=== PATIENT | female | born 1950 | race Caucasian/White ===

== ENCOUNTER 2017-12-29 09:14 | Day surgery (SDC) | payer BC ==
[2017-12-28 12:48] VITALS: BMI 26.2
[2017-12-29 10:28] LABS: Hemoglobin 15.4 g/dL (12.0-16.0)
[2017-12-29 10:44] LABS: Anion Gap 11 mmol/L (10-20); BUN (Urea Nitrogen) 11 mg/dL (9.8-20.1); Calc. Creatinine Clearance 83 mL/min (70-130); Calcium 9.7 mg/dL (7.8-10.44); Carbon Dioxide 27 mmol/L (23-31); Chloride 106 mmol/L (98-107); Estimated GFR-MDRD 81; Glucose 109 mg/dL (80-115); Potassium 4.1 mmol/L (3.5-5.1); Sodium 140 mmol/L (136-145)
[2017-12-29] MEDS ORDERED: Fentanyl 100 MCG/2 ML VIAL ONE ×3 (12:13→13:56)
[2017-12-29] MEDS ORDERED: Lidocaine 1% w/Epinephrine 1:100K 30 ML VIAL ONE (12:22)
[2017-12-29] MEDS ORDERED: traMADol HCl 50 MG TAB ONE (15:09)
[2017-12-29] MEDS ORDERED: Succinylcholine Chloride 20 MG/ML 10 ml SYRINGE FS ONE (15:29)
[2017-12-29] MEDS ORDERED: Ondansetron HCl/PF 4 MG/2 ML Vial ONE (15:29)
[2017-12-29] MEDS ORDERED: PROPOFOL 200 MG/20 ML VIAL ONE (15:29)
[2017-12-29] MEDS ORDERED: PHENYLEPHRINE-NS 100 MCG/ML 10 ML SYRINGE ONE (15:29)
[2017-12-29] MEDS ORDERED: Lidocaine 1% PF 5 ML VIAL ONE (15:29)
[2017-12-29] MEDS ORDERED: Dexamethasone 20 MG/5 ML VIAL ONE (15:29)
[2017-12-29] MEDS ORDERED: ePHEDrine/0.9% NaCl/PF SYRINGE 50 mg/10 ml ONE (15:29)
--- NOTE | 2017-12-30 17:40 | OP ---
DATE OF PROCEDURE: 12/29/2017 SURGEON: Dr. Luis Deleon PREOPERATIVE DIAGNOSES: Right parotid mass. POSTOPERATIVE DIAGNOSES: Right parotid mass. PROCEDURE PERFORMED: Right superficial parotidectomy with facial nerve dissection using facial nerve monitor. PROCEDURE IN DETAIL: After consent was obtained, the patient was identified, brought to the operatin g room table where she was placed in supine position and positioned for surgery. After she was intub ated she was positioned for surgery and the area was prepped and draped. The line of incision was de lineated with a marking pen and extended preauricularly and then 2 fingerbreadths below the angle of the jaw. This incision was made with a 15 blade and carried down through the skin and subcutaneous t issues and a facial flap was elevated along the SMAS layer. The greater auricular nerve was transect ed to facilitate the dissection. We then dissected along the anterior aspect of the ear down to the external cartilaginous canal and anterior to the sternocleidomastoid. This dissection had been in a broad front with bleeding points identified and cauterized or suture ligated as they were encountered . Ultimately, the posterior belly of digastric was identified and the facial nerve was identified an d the root of the facial nerve was identified between the superior aspect of the digastric muscle and the pointer cartilage. This was dissected down along its branches and the superior and inferior bra nch from the PES was identified. We were then able because the nature of the mass was so posterior, we were able to then dissect the mass while observing from the integrity of the nerve. The specimen was sent for permanent histologic evaluation and attention was turned to wound, obtaining hemostasis and wound closure. The wound was closed in layers with 4-0 Monocryl to reapproximate this mass and p latysma and interrupted Monocryl for the dermis. The skin was then closed with running 6-0 Prolene s uture. Steri-Strips were applied and a sterile dressing was placed. The patient was awakened, extub ated, and taken to the recovery room where she remained in stable condition prior to discharge home.
== END 2017-12-29 16:10 | disposition home or self-care (01) ==
LOC: SDC 09:14
PROVIDERS: ATTEND Specialist
PROC: 0CB80ZZ Excision of Right Parotid Gland, Open Approach (ICD-10-PCS; principal; 2017-12-29)
DX: D11.0 Benign neoplasm of parotid gland (principal); J44.9 Chronic obstructive pulmonary disease, unspecified; K21.9 Gastro-esophageal reflux disease without esophagitis; J34.2 Deviated nasal septum; G44.209 Tension-type headache, unspecified, not intractable; Z79.899 Other long term (current) drug therapy; Z88.0 Allergy status to penicillin; Z85.038 Personal history of other malignant neoplasm of large intestine; Z85.51 Personal history of malignant neoplasm of bladder; Z88.8 Allergy status to other drugs, medicaments and biological substances
CPT/HCPCS: 36415; 80048; 85014; 85018; 88307; 93005; 93010; 96374; J1100; J2001; J2405; J2704; J3010

== ENCOUNTER 2020-01-01 19:33 | Emergency (ER) | payer BC ==
[~2020-01-01 19:33] MED LIST: Iopamidol-370 76% 500 ML 1 ML ONE
[2020-01-01] MEDS ORDERED: Promethazine HCl 25 MG/ML VIAL ONE (20:11)
[2020-01-01 20:16] LABS: #Basophils 0.1 thou/uL (0.0-0.2); #Eosinphils 0.2 thou/uL (0.0-0.7); #Lymphocytes 2.8 thou/uL (1.20-3.40); #Monocytes 0.6 thou/uL (0.11-0.59); %Eosinophils 2.3 % (0.0-10.0); %Lymphocytes 36.1 % (21.0-51.0); %Monocytes 8.3 % (0.0-10.0); %Neutrophils 52.2 % (42.0-75.0); Hemoglobin 15.6 g/dL (12.0-16.0); Mean Corpuscular HGB CONC 33.4 g/dL (32.0-36.0); Mean Corpuscular Hemoglobin 31.4 pg (27.0-31.0); Mean Corpuscular Volume 93.9 fL (78.0-98.0); Mean Platelet Volume 6.1 fL (7.4-10.4); Platelet Count 314 thou/uL (130-400); RBC Distribution Width 12.8 % (11.5-14.5); Red Blood Cell (RBC) Count 4.99 mill/uL (4.20-5.40); White Blood Cell (WBC) Count 7.6 thou/uL (4.8-10.8)
[2020-01-01 20:37] LABS: Bacteria/HPF None Seen HPF (None Seen); Bilirubin Negative (Negative); Blood, Urine 1+ (Negative); Clarity Clear (Clear); Glucose, Urine (Dipstick) Normal (Negative); Ketone, Urine Negative (Negative); Leukocyte Negative Leu/uL (Negative); Nitrite Negative (Negative); Protein, Urine (Dipstick) Negative (Neg-Trace); Specific Gravity, Urine 1.007 (1.002-1.036); Squamous Epithelial 0-3 HPF (0-3); Urobilinogen Normal mg/dL (Less than 2); WBC/HPF 0-3 HPF (0-3)
[2020-01-01 20:37] LABS: ALT (SGPT) Less than 7 U/L (8-55); AST (SGOT) 14 U/L (5-34); Albumin 4.1 g/dL (3.4-4.8); Alkaline Phosphatase 109 U/L (40-110); Anion Gap 11 mmol/L (10-20); BUN (Urea Nitrogen) 7 mg/dL (9.8-20.1); Bilirubin, Total 0.3 mg/dL (0.2-1.2); Calc. Creatinine Clearance 0 mL/min (70-130); Calcium 9.4 mg/dL (7.8-10.44); Carbon Dioxide 29 mmol/L (23-31); Chloride 105 mmol/L (98-107); Estimated GFR-MDRD 88; Globulin 3.1 g/dL (2.4-3.5); Glucose 101 mg/dL (80-115); Lipase 19 U/L (8-78); Potassium 4.5 mmol/L (3.5-5.1); Protein, Total 7.2 g/dL (6.0-8.3); Sodium 140 mmol/L (136-145)
--- NOTE | 2020-01-01 21:19 | CT ---
CT ABDOMEN AND PELVIS PERFORMED WITH CONTRAST ENHANCEMENT: 01/01/20 HISTORY: Bladder cancer. Recurrent diverticulitis presenting with three days of worsening abdominal pain. No f ever or chills. COMPARISON: An 11/12/15 study. The lung bases are clear. A moderate hiatal hernia is noted. Innumerable hypodensities within the liver similar to the prior exam most compatible with cysts. The spleen, pancreas, and gallbladder region all appears unremarkable. Hyperplastic appearance which is probably related to an adenoma of the left adrenal gland is stable. The right adrenal is normal. The right kidney is normal in size and appearance. A large exophytic pa rapelvic cyst in the lower pole region of the left kidney is again noted. This measures approximately 7.1 cm. 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 It measures 4.3 cm in length. In reviewing the previous CT study which had some delayed images, this corresponds to the area of the course of the ureter and is suspicious for a ureteral mass. There is a retroaortic left renal vein incidentally noted. There is no significant pe riaortic or mesenteric adenopathy. CT OF PELVIS PERFORMED WITH CONTRAST ENHANCEMENT: Surgical clips along the left of the bladder which is incompletely distended. Diverticulosis of the c olon mainly of the sigmoid region is seen without inflammatory change. A fat containing periumbilical hernia is present. The appendix is normal in size. Review of osseous structures show no lytic or blastic bony change. IMPRESSION: 1. Soft tissue mass which is along the posterior edge of a large exophytic parapelvic left renal cyst. This density appears to correspond in location to the position of the ureter when viewed on a previous CT examination. The density of this would suggest that this presents a mass and an entity s uch as transitional cell carcinoma would have to be strongly considered. Urology consult is recommend ed. There is hydronephrosis of the left kidney associated with these changes which is actually simila r to the previous exam. 2. Stable left adrenal adenoma. 3. Hepatic cyst. 4. Diverticulosis. 5. Postop change of surgical clips along the left side of the bladder. 6. Hiatal hernia. POS: STEVE
== END 2020-01-01 22:50 | disposition home or self-care (01) ==
LOC: ERS 19:33
DX: N28.89 Other specified disorders of kidney and ureter (principal); Z85.51 Personal history of malignant neoplasm of bladder
CPT/HCPCS: 74177; 80053; 81003; 81015; 83690; 85025; 96365; 96366; J2550; Q9967

== ENCOUNTER 2023-01-01 23:00 | Observation (INO) | payer BC ==
[2023-01-02 00:54] VITALS: BMI 28.9
[2023-01-02] MEDS ORDERED: Nitroglycerin 0.4 MG TAB (25 Tab Bottle) SL PRN (01:54)
[2023-01-02] MEDS ORDERED: Pantoprazole 40 MG VIAL IVP SCH (01:58)
[2023-01-02] MEDS ORDERED: Acetaminophen 325 MG TAB PO PRN (01:59)
[2023-01-02] MEDS ORDERED: Ondansetron ODT 4 MG TAB PO PRN (01:59)
[2023-01-02] MEDS ORDERED: Ondansetron PF 4 MG/2 ML Vial IVP PRN (01:59)
[2023-01-02] MEDS ORDERED: Acetaminophen 650 MG Suppository PR PRN (01:59)
[2023-01-02 02:25] LABS: #Basophils 0.1 thou/uL (0.0-0.2); #Eosinphils 0.1 thou/uL (0.0-0.7); #Monocytes 0.6 thou/uL (0.11-0.59); #Neutrophils 4.4 thou/uL (1.40-6.50); %Basophils 0.7 % (0.0-1.0); %Eosinophils 1.1 % (0.0-10.0); %Lymphocytes 35.9 % (21.0-51.0); %Monocytes 7.8 % (0.0-10.0); %Neutrophils 54.3 % (42.0-75.0); Hematocrit 39.9 % (36.0-47.0); Mean Corpuscular HGB CONC 32.6 g/dL (32.0-36.0); Mean Corpuscular Hemoglobin 29.7 pg (27.0-31.0); Mean Corpuscular Volume 91.1 fl (78.0-98.0); Mean Platelet Volume 8.5 fL (7.4-10.4); Platelet Count 357 10x3/uL (130-400); RBC Distribution Width 14.1 % (11.5-14.5); Red Blood Cell (RBC) Count 4.38 mill/uL (4.20-5.40); White Blood Cell (WBC) Count 8.1 10x3/uL (4.8-10.8)
[2023-01-02 02:54] LABS: Troponin I Less than 0.010 ng/mL (< 0.028)
[2023-01-02 02:58] LABS: Anion Gap 13 mmol/L (10-20); BUN (Urea Nitrogen) 13 mg/dL (9.8-20.1); Calc. Creatinine Clearance 68 mL/min (70-130); Calcium 9.2 mg/dL (7.8-10.44); Carbon Dioxide 27 mmol/L (23-31); Chloride 105 mmol/L (98-107); Estimated GFR 69; Glucose 176 mg/dL (80-115); Potassium 4.6 mmol/L (3.5-5.1); Sodium 140 mmol/L (136-145)
[2023-01-02 05:32] LABS: Hemoglobin A1c 5.8 % (4.0-6.0)
[2023-01-02 08:27] LABS: Troponin I Less than 0.010 ng/mL (< 0.028)
[2023-01-02] MEDS ORDERED: Aspirin Chewable 81 MG TAB PO SCH (09:00)
[2023-01-02] MEDS: Sucralfate 1 GM TAB PO SCH ×2 (11:09→16:09)
[2023-01-02 11:48] VITALS: BP 115/52; TEMP 98.1
== END 2023-01-02 16:47 | disposition home or self-care (01) ==
LOC: UNDOADMOB 23:00 → 2SW 23:00
PROVIDERS: ADMIT Student in an Organized Health Care Education/Training Program; ATTEND Internal Medicine
DX: R07.9 Chest pain, unspecified (principal); R55 Syncope and collapse; K22.70 Barrett's esophagus without dysplasia; K57.90 Diverticulosis of intestine, part unspecified, without perforation or abscess without bleeding; C67.9 Malignant neoplasm of bladder, unspecified; F17.210 Nicotine dependence, cigarettes, uncomplicated; R10.13 Epigastric pain; Z79.82 Long term (current) use of aspirin; Z79.899 Other long term (current) drug therapy; Z88.0 Allergy status to penicillin; Z88.6 Allergy status to analgesic agent
CPT/HCPCS: 36415; 80048; 83036; 84484; 85025; 93306; 94760; G0378; G0379